=== PATIENT | female | born 2000 | race Caucasian/White ===

== ENCOUNTER → 2020-03-31 13:30 | Outpatient (CLI) | payer BC, SELFPAY ==
[2020-03-31 15:18] LABS: COVID19 -Nasal RAPID Negative (Negative)
== END ==
PROVIDERS: Family Provider Family Medicine; PCP Pediatrics; Visit Provider Physician Assistant
DX: Z11.59 Encounter for screening for other viral diseases (principal)
CPT/HCPCS: 87635